=== PATIENT | male | born 1965 | race Two or more races ===

== ENCOUNTER 2019-01-10 02:34 | Emergency (ER) | payer OTHER ==
[~2019-01-10] VITALS: Ht 172.7 cm; Wt 93.5 kg
--- NOTE | 2019-01-10 02:39 | ED.ADGEN ---
Past History Past Medical History: Cancer Past Medical History Multiple myeloma status post stem cell transplant. Adult General Chief Complaint Chief Complaint ". I got this bad rash.. it started three days ago... it like some kind of allergy.... I had something like this before... I ve been using steroid cream.. and benadryl cream. it is not getting better... when I had it before this bad they gave steroid IV..." HPI HPI Patient is a 53 [facility] who presents with above hx and complaints of skin rash. Patient has extensive hives over his entire body. Does have some yao-orbital edema. No appreciable stridor.. Allergic reaction has been in progress for the last 3 days. Patient has been using topical steroid creams and Benadryl [id number] with no improvement of symptoms. Patient has had 1 previous episode but not as severe as this one. Prior episode of hives or allergic reaction reportedly responded to IV steroids and some other meds. Patient recently moved to the area from [place]. Patient denies any recent changes in meds, foods or exposures. Patient is currently in remission from multiple myeloma and stem cell transplant. Patient follows with the [facility]. No recent travel. No specific ill contacts. Patient is with his who states this is the worst his hives that he's ever had. Review of Systems Review of Systems Constitutional: Denies fever or chills [] Eyes: Denies change in visual acuity, redness, or eye pain [] HENT: Denies nasal congestion or sore throat [] Respiratory: Denies cough or shortness of breath [] Cardiovascular: No additional information not addressed in HPI [] GI: Denies abdominal pain, nausea, vomiting, bloody stools or diarrhea [] : Denies dysuria or hematuria [] Musculoskeletal: Denies back pain or joint pain [] Integument: Complaints of extensive hives] Neurologic: Denies headache, focal weakness or sensory changes [] Endocrine: Denies polyuria or polydipsia [] All other systems were reviewed and found to be within normal limits, except as documented in this note. Family History Family History Noncontributory Current Medications Current Medications Current Medications Medications (Trade) Dose Ordered Sig/Tommie Start Time Stop Time Status Last Admin Dose Admin Albuterol Sulfate (Ventolin Hfa Inhaler) 2 puff 1X ONCE 10/13/19 04:00 01/10/19 04:01 DC 01/10/19 03:35 2 PUFF Diphenhydramine HCl (Benadryl) 50 mg 1X ONCE 01/10/19 04:00 01/10/19 04:01 DC 01/10/19 03:38 50 MG Famotidine (Pepcid Vial) 20 mg 1X ONCE 01/10/19 04:00 01/10/19 04:01 DC 01/10/19 03:37 20 MG Lactated Ringer's 1,000 ml @ 1,000 mls/hr Q1H 01/10/19 04:00 01/10/19 04:59 DC 01/10/19 03:37 1,000 MLS/HR Methylprednisolone Sodium Succinate (SOLU-Medrol 125MG VIAL) 125 mg 1X ONCE 01/10/19 04:00 01/10/19 04:01 DC 01/10/19 03:37 125 MG Allergies Allergies Allergies Coded Allergies Type Severity Reaction Last Updated Verified No Known Drug Allergies 01/10/19 No Physical Exam Physical Exam Constitutional:in acute distress, non-toxic appearance. [] HENT: Normocephalic, atraumatic, bilateral external ears normal, oropharynx moist, no oral exudates, nose normal. [] Eyes: PERRLA, EOMI, conjunctiva normal, no discharge. [] Neck: Normal range of motion, no tenderness, supple, no stridor. [] Cardiovascular:Heart rate regular rhythm, no murmur [] Lungs & Thorax: Bilateral breath sounds equal at apex with few scattered wheezes on auscultation []. Old port scar right subclavian. Abdomen: Bowel sounds normal, soft, no tenderness, no masses, no pulsatile masses. [] Skin: Warm, dry, extensive hives. Multiple tattoos Back: No tenderness, no CVA tenderness. [] Extremities: No tenderness, no cyanosis, no clubbing, ROM intact, no edema. [] Neurologic: Alert and oriented X 3, normal motor function, normal sensory function, no focal deficits noted. [] Psychologic: Affect anxious, judgement normal, mood normal. [] Current Patient Data Vital Signs Vital Signs Date Time Temp Pulse Resp B/P (MAP) Pulse Ox O2 Delivery O2 Flow Rate FiO2 01/10/19 03:39 100 10/13/19 03:15 98.4 114 22 133/79 (97) Room Air Lab Results Laboratory Tests Test 01/10/19 03:45 White Blood Count 9.7 x10^3/uL (4.0-11.0) Red Blood Count 4.83 x10^6/uL (4.30-5.70) Hemoglobin 15.9 g/dL (13.0-17.5) Hematocrit 48.1 % (39.0-53.0) Mean Corpuscular Volume 100 fL (79-100) Mean Corpuscular Hemoglobin 33 pg (25-35) Mean Corpuscular Hemoglobin Concent 33 g/dL (31-37) Red Cell Distribution Width 16.9 % (11.5-14.5) H Platelet Count 162 x10^3/uL (140-400) Neutrophils (%) (Auto) 87 % (31-73) H Lymphocytes (%) (Auto) 8 % (24-48) L Monocytes (%) (Auto) 3 % (0-9) Eosinophils (%) (Auto) 1 % (0-3) Basophils (%) (Auto) 1 % (0-3) Neutrophils # (Auto) 8.5 x10^3uL (1.8-7.7) H Lymphocytes # (Auto) 0.8 x10^3/uL (1.0-4.8) L Monocytes # (Auto) 0.3 x10^3/uL (0.0-1.1) Eosinophils # (Auto) 0.1 x10^3/uL (0.0-0.7) Basophils # (Auto) 0.1 x10^3/uL (0.0-0.2) Segmented Neutrophils % 63 % (35-66) Band Neutrophils % 25 % (0-9) H Lymphocytes % 6 % (24-48) L Monocytes % 5 % (0-10) Metamyelocytes % 1 % (0-0) H Nucleated Red Blood Cells 1 Smudge Cells Present Toxic Granulation Mod Platelet Estimate Adequate (ADEQUATE) Large Platelets Occ Anisocytosis Slight Sodium Level 136 mmol/L (136-145) Potassium Level 3.4 mmol/L (3.5-5.1) L Chloride Level 101 mmol/L (98-107) Carbon Dioxide Level 25 mmol/L (21-32) Anion Gap 10 (6-14) Blood Urea Nitrogen 26 mg/dL (8-26) Creatinine 1.6 mg/dL (0.7-1.3) H Estimated GFR (Cockcroft-Gault) 45.8 Glucose Level 121 mg/dL (70-99) H Calcium Level 8.3 mg/dL (8.5-10.1) L Total Bilirubin 0.5 mg/dL (0.2-1.0) Direct Bilirubin 0.1 mg/dL (0.0-0.2) Aspartate Amino Transferase (AST) 16 U/L (15-37) Alanine Aminotransferase (ALT) 26 U/L (16-63) Alkaline Phosphatase 69 U/L (46-116) Total Protein 6.2 g/dL (6.4-8.2) L Albumin 2.8 g/dL (3.4-5.0) L EKG EKG [] Radiology/Procedures Radiology/Procedures [] Course & Med Decision Making Course & Med Decision Making Pertinent Labs and Imaging studies reviewed. (See chart for details) Patient to push fluids and fruit juices. Patient take Zantac 150 mg twice a day. Patient take prednisone 50 mg daily for 5 days. Patient use MDI 2 puffs 4 times a day. Patient take Benadryl 50 mg 4 times a day. Patient follow-up in his clinic at [facility]. Patient return if any concerns. Patient to attempt to identify cause of his allergic reaction. [] Final Impression Final Impression 1. Allergic Reaction[]-Hives 2. Mild hypokalemia 3.4 3. Mild dehydration and elevated creatinine 1.6 4. Malnutrition. Albumin 2.8 5.. Mild elevation in glucose 121 6. History of multiple myeloma- -CBC appears to be grossly normal currently Dragon Disclaimer Dragon Disclaimer This electronic medical record was generated, in whole or in part, using a voice recognition dictation system. Dragon Disclaimer This chart was dictated in whole or in part using Voice Recognition software in a busy, high-work load, and often noisy Emergency Department environment. It may contain unintended and wholly unrecognized errors or omissions. Dragon Disclaimer This chart was dictated in whole or in part using Voice Recognition software in a busy, high-work load, and often noisy Emergency Department environment. It may contain unintended and wholly unrecognized errors or omissions. KORTNEY CARLOS MD Jan 10, 2019 02:39
[2019-01-10 03:15] VITALS: BP 133/79
[2019-01-10] MEDS ORDERED: ALBUTEROL SULFATE 8GM INHALER. IH ONE (04:00)
[2019-01-10] MEDS ORDERED: FAMOTIDINE 20 MG/2 ML VIAL IVP ONE (04:00)
[2019-01-10] MEDS ORDERED: IV RINGERS SOLUTION,LACTATED 1,000 ML IV SCH (04:00)
[2019-01-10] MEDS ORDERED: methylPREDNISolone SOD SUCC PF 125 MG/2 ML VIAL. IV ONE (04:00)
[2019-01-10] MEDS ORDERED: diphenhydrAMINE 50 MG/ML VIAL IV ONE (04:00)
[2019-01-10 04:10] LABS: BASO # 0.1 x10^3/uL (0.0-0.2); BASO % 1 % (0-3); EOS # 0.1 x10^3/uL (0.0-0.7); EOS % 1 % (0-3); HEMATOCRIT 48.1 % (39.0-53.0); HEMOGLOBIN 15.9 g/dL (13.0-17.5); LYMPH # 0.8 x10^3/uL (1.0-4.8); LYMPH % 8 % (24-48); MEAN CORPUSCULAR HEMOGLOBIN 33 pg (25-35); MEAN CORPUSCULAR HGB CONC 33 g/dL (31-37); MEAN CORPUSCULAR VOLUME 100 fL (79-100); MONO # 0.3 x10^3/uL (0.0-1.1); MONO % 3 % (0-9); NEUT # 8.5 x10^3uL (1.8-7.7); NEUT % 87 % (31-73); PLATELET COUNT 162 x10^3/uL (140-400); RED BLOOD COUNT 4.83 x10^6/uL (4.30-5.70); RED CELL DISTRIBUTION WIDTH 16.9 % (11.5-14.5); WHITE BLOOD COUNT 9.7 x10^3/uL (4.0-11.0)
[2019-01-10 04:18] LABS: ALBUMIN 2.8 g/dL (3.4-5.0); CALCIUM 8.3 mg/dL (8.5-10.1); CREATININE 1.6 mg/dL (0.7-1.3); GFR 45.8; TOTAL BILIRUBIN 0.5 mg/dL (0.2-1.0); TOTAL PROTEIN 6.2 g/dL (6.4-8.2)
[2019-01-10 04:27] LABS: POTASSIUM 3.4 mmol/L (3.5-5.1)
[2019-01-10 04:28] LABS: DIRECT BILIRUBIN 0.1 mg/dL (0.0-0.2)
[2019-01-10] MEDS ORDERED: RANI-376 PO (04:39)
[2019-01-10] MEDS ORDERED: PRED50TA PO (04:39)
[2019-01-10 05:45] LABS: % BANDS 25 % (0-9); % LYMPHS 6 % (24-48); % METAS 1 % (0-0); % MONOS 5 % (0-10); % SEGS 63 % (35-66); NUCLEATED RBC 1
[2019-01-10 05:46] LABS: ANISOCYTOSIS SLIGHT; PLT ESTIMATE ADEQUATE (ADEQUATE); SMUDGE CELLS PRESENT; TOXIC GRANULATION MOD
== END 2019-01-10 05:20 | disposition home or self-care (01) ==
LOC: ER 02:34
DX: T78.40XA Allergy, unspecified, initial encounter (principal); L50.9 Urticaria, unspecified; E87.6 Hypokalemia; E86.0 Dehydration; E46 Unspecified protein-calorie malnutrition; R73.02 Impaired glucose tolerance (oral); R79.82 Elevated C-reactive protein (CRP); Z85.79 Personal history of other malignant neoplasms of lymphoid, hematopoietic and related tissues; Z68.31 Body mass index [BMI] 31.0-31.9, adult; X58.XXXA Exposure to other specified factors, initial encounter
CPT/HCPCS: 36415; 80048; 80076; 85007; 85025; 94640; 96361; 96374; 96375; 99285; J1200; J2930; J3490; J7120; J7613